=== PATIENT | female | born 1980 | race Caucasian/White ===

== ENCOUNTER 2017-05-27 12:59 | Emergency (ER) | payer OTHER ==
[~2017-05-27] VITALS: Ht 165.1 cm; Wt 61.6 kg
[2017-05-27 13:04] VITALS: TEMP 36.7; Ht 165.1 cm; Wt 61.6 kg
[2017-05-27] MEDS ORDERED: LEVO1IUD2 PV (13:15)
[2017-05-27] MEDS ORDERED: FLUT0.15 NAE (13:15)
[2017-05-27] MEDS ORDERED: HYDR12.55 PO (13:15)
[2017-05-27] MEDS ORDERED: LEFL10TA PO (13:15)
--- NOTE | 2017-05-27 13:32 | EMERGENCY ROOM VISIT NOTE ---
History Report prepared by Rachel: Julian Cantu Under the Supervision of: Dr. Ruben Hernández D.O. First contact with patient: 13:12 Chief Complaint: OTHER COMPLAINT Stated Complaint: CRAMPING/ CAN'T FEEL IUD STRINGS History of Present Illness The patient is a 37 year old female who presents to the Emergency Room with complaints of intermittent abdominal cramping that began 4 days ago. The patient has an IUD and is not able to find the string. Normally the patient has a menstrual cycle that is 1 day long and states this cramping is out of the ordinary. She denies abdominal pain and vaginal bleeding. Source of History: patient Onset: 4 days ago Position: pelvis Quality: cramping Timing: intermittent Associated Symptoms: No abdominal pain Note: Patient denies vaginal bleeding. Review of Systems See HPI for pertinent positives & negatives. A total of 10 systems reviewed and were otherwise negative. Social History Smoking Status: Never Smoker Smokeless Tobacco Use: No Drug Use: none Occupation Status: employed Current/Historical Medications Scheduled Hydrochlorothiazide (Hydrochlorothiazide), 12.5 MG PO DAILY Leflunomide (Arava), 10 MG PO DAILY Levonorgestrel (Iud) (Mirena), 1 DOSE PV UD Scheduled PRN Fluticasone Propionate (Nasal) (Flonase Allergy Relief), 1 SPRAY ALEXA UD PRN for ALLERGIES Allergies Coded Allergies: Sulfa Antibiotics (Unverified Allergy, Severe, itchy rash, full body, 05/27) Physical Exam Vital Signs Date Time Temp Pulse Resp B/P (MAP) Pulse Ox O2 Delivery O2 Flow Rate FiO2 05/27/17 13:04 36.7 76 18 167/104 99 Room Air Physical Exam CONSTITUTIONAL/VITAL SIGNS: Reviewed / noted above. GENERAL: Non-toxic in appearance. INTEGUMENTARY: Warm, dry, and [place]. HEAD: Normocephalic. EYES: without scleral icterus or trauma. ENT/OROPHARYNX: clear and moist. LYMPHADENOPATHY/NECK: Is supple without lymphadenopathy or meningismus. RESPIRATORY: Lungs clear and equal. CARDIOVASCULAR: Regular rate and rhythm. GI/ABDOMEN: Soft and nontender. No organomegaly or pulsatile mass. No rebound or guarding. Normal bowel sounds. EXTREMITIES: Warm and well perfused. BACK: No CVA tenderness. NEUROLOGICAL: Intact without focal deficits. PSYCHIATRIC: normal affect. MUSCULOSKELETAL: Normally developed with good muscle tone. PELVIC: normal. String from the IUD is present and appears normal. Medical Decision & Procedures ED Course 1312: Previous medical records were reviewed. The patient was evaluated in room C7. A complete history and physical examination was performed. 1315:I performed a pelvic exam on the patient. 1330: On reevaluation, the patient is resting comfortably. I discussed the results and findings with the patient. She verbalized agreement of the treatment plan. She was discharged home. Medical Decision Differential considered: pancreatitis, hepatitis, or acute cholecystitis, AAA, UTI, pyelonephritis, kidney stones, appendicitis, diverticulitis, shingles, bowel obstruction mesenteric ischemia, intussusception,hernia, ovarian torsion, ruptured ovarian cyst,ectopic , . The patient presents to the ED with a chief complaint of some lower pelvic cramping states that she could not find her IUD string. She was worried about this perforating her uterus and came in for evaluation to make sure the string was present. Her exam is unremarkable. Abdominal exam did not reveal any tenderness. Pelvic exam reveals no abnormalities and the string from the IUD is present. The patient was told the results of the the exam. She did not feel she requires any additional testing at this time. Her primary goal was to make sure her IUD string was present. The patient is felt to be stable for discharge. Medication Reconcilliation Current Medication List: was personally reviewed by me Blood Pressure Screening Patient's blood pressure: Elevated blood pressure Blood pressure disposition: Elevated BP felt to be situational Impression Primary Impression: Pelvic cramping Scribe Attestation The scribe's documentation has been prepared under my direction and personally reviewed by me in its entirety. I confirm that the note above accurately reflects all work, treatment, procedures, and medical decision making performed by me. Departure Information Dispostion Home / Self-Care Patient Instructions [facility] Additional Instructions Follow-up with your doctor for further care and evaluation in 1-2 days if symptoms persist. Return to the emergency department for worsening or new symptoms or any concerns. You have been examined and treated today on an emergency basis only. This is not a substitute for, or an effort to provide, complete comprehensive medical care. It is impossible to recognize and treat all injuries or illnesses in a single emergency department visit. It is therefore important that you follow up closely with your doctor. Call as soon as possible for an appointment.
[2017-05-27 13:51] VITALS: BP 136/78; PULSE 70; O2SAT 97
== END 2017-05-27 13:52 | disposition home or self-care (01) ==
LOC: C.EDB 13:03 → C.EDC 13:52
DX: R10.2 Pelvic and perineal pain (principal); Z79.899 Other long term (current) drug therapy; Z88.1 Allergy status to other antibiotic agents; Z88.2 Allergy status to sulfonamides; Z97.5 Presence of (intrauterine) contraceptive device